=== PATIENT | female | born 1985 | race African-American/Black ===

== ENCOUNTER 2019-01-07 18:55 | Emergency (ER) | payer MEDICAID, OTHER ==
[~2019-01-07] VITALS: Ht 172.7 cm; Wt 50.8 kg
[2019-01-07 19:15] VITALS: BP 131/80
== END 2019-01-08 02:17 | disposition left against medical advice (07) ==
LOC: ER 18:59
DX: R42 Dizziness and giddiness (principal); Z53.21 Procedure and treatment not carried out due to patient leaving prior to being seen by health care provider

== ENCOUNTER 2019-05-18 07:10 | Emergency (ER) | payer MEDICAID ==
[~2019-05-18] VITALS: Ht 165.1 cm; Wt 54.4 kg
[2019-05-18 07:33] VITALS: BP 112/86
[2019-05-18] MEDS ORDERED: KETOROLAC TROMETH 60MG/2ML VIAL IM ONE (07:45)
== END 2019-05-18 08:04 | disposition home or self-care (01) ==
LOC: ER 07:14
DX: M72.2 Plantar fascial fibromatosis (principal)
CPT/HCPCS: 96372; 99283; J1885

== ENCOUNTER 2019-05-27 12:56 | Emergency (ER) | payer MEDICAID ==
[~2019-05-27] VITALS: Ht 170.2 cm; Wt 54.4 kg
[2019-05-27 13:07] VITALS: BP 126/79
== END 2019-05-27 14:34 | disposition left against medical advice (07) ==
LOC: ER 12:56
DX: M79.672 Pain in left foot (principal); M79.671 Pain in right foot; Z53.21 Procedure and treatment not carried out due to patient leaving prior to being seen by health care provider